=== PATIENT | male | born 1990 | race Caucasian/White ===

== ENCOUNTER 2021-01-20 14:35 | Emergency (ER) | payer BC, OTHER ==
[~2021-01-20 14:35] MED LIST: ADIPEX-P37.5 MG PO; IBUPROFEN600 MG PO; LOPRESSOR 50 MG50 MG PO; PERCOCET 5-3251 EACH PO; PRINIVIL20 MG PO; SUBOXONE 8 MG-1 EACH SL; TORADOL 10 MG T10 MG PO; ZOFRAN ODT 4 MG4 MG PO; ZOFRAN4 MG PO
[2021-01-20 16:43] LABS: HEMOGLOBIN 15.8 gm/dl (14.0-17.5); RED BLOOD COUNT 5.69 M/UL (4.20-5.50); WHITE BLOOD COUNT 8.9 K/UL (4.5-11.0)
[2021-01-20 16:57] LABS: BUN/CREATININE RATIO 20 (0-10)
[2021-01-20] MEDS ORDERED: ZOFRAN ODT 4 MG4 MG SL (19:39)
== END 2021-01-20 19:48 | disposition home or self-care (01) ==
LOC: ER1 14:35
PROVIDERS: Physician Assistant Medical
DX: R11.2 Nausea with vomiting, unspecified (principal); N17.9 Acute kidney failure, unspecified; F17.210 Nicotine dependence, cigarettes, uncomplicated; I10 Essential (primary) hypertension; Z20.822 Contact with and (suspected) exposure to COVID-19
CPT/HCPCS: 80053; 81001; 85025; 93005; 99284; U0002

== ENCOUNTER 2021-11-01 23:22 | Emergency (ER) | payer BC ==
[~2021-11-01 23:22] MED LIST changes: +ZOFRAN ODT 4 MG4 MG SL
[2021-11-02 01:24] LABS: HEMOGLOBIN 15.3 gm/dl (14.0-17.5); RED BLOOD COUNT 5.3 M/UL (4.20-5.50); WHITE BLOOD COUNT 7.8 K/UL (4.5-11.0)
[2021-11-02 01:49] LABS: BUN/CREATININE RATIO 13 (0-10)
== END 2021-11-02 03:28 | disposition home or self-care (01) ==
LOC: ER1 23:22
PROVIDERS: Student in an Organized Health Care Education/Training Program
DX: J11.1 Influenza due to unidentified influenza virus with other respiratory manifestations (principal); Z20.822 Contact with and (suspected) exposure to COVID-19
CPT/HCPCS: 0240U; 80048; 81001; 85025; 96372; 99283; J1885